=== PATIENT | male | born 1955 | race Caucasian/White ===

== ENCOUNTER 2022-02-28 15:13 | Inpatient (IN) ==
[2022-02-28] MEDS ORDERED: D5% in Water 1,000 ML IVC PRN (18:27)
[2022-02-28] MEDS ORDERED: Dextrose Gel 15 GM/37.5 ML TUBE PO PRN ×2 (18:27)
[2022-02-28] MEDS ORDERED: *HR* Dextrose 50 % in Water (Syg) 50 ML SYRINGE IVP PRN (18:27)
[2022-02-28] MEDS ORDERED: Insulin DETEMIR 100 UNIT/ML per UNIT SUBQ SCH ×2 (21:00)
[2022-02-28] MEDS: Insulin DETEMIR 100 UNIT/ML X5UNITS SUBQ SCH (22:20)
[2022-03-01 05:28] LABS: Basophils # 0.1 K/mcL (0.0-0.2); Basophils % 0.9 %; Eosinophils # 0.3 K/mcL (0.0-0.6); Eosinophils % 2.7 %; Hematocrit 38.1 % (37.5-50.1); Immature Granulocytes % 0.2 % (0-4); Lymphocytes # 2.6 K/mcL (0.6-4.6); Lymphocytes % 27.8 %; Mean Corpuscular HGB Conc 34.1 g/dL (31.6-35.5); Mean Corpuscular Hemoglobin 29.6 pg (28.0-33.3); Mean Corpuscular Volume 86.8 fL (83.0-100.0); Mean Platelet Volume 8.7 fL (9.4-12.4); Monocytes # 1.1 K/mcL (0.0-1.3); Monocytes % 11.4 %; Neutrophils # 5.4 K/mcL (1.6-8.9); Platelet Count 312 K/mcL (140-400); Red Blood Count 4.39 M/mcL (4.19-5.50); White Blood Count 9.5 K/mcL (4.3-11.1)
[2022-03-01 05:49] LABS: BUN/Creatinine Ratio 20 (6-26); Blood Urea Nitrogen 21 mg/dL (8-23); Calcium 9.3 mg/dL (8.6-10.3); Carbon Dioxide 31 mEq/L (23-29); Chloride 100 mEq/L (98-107); Glucose 129 mg/dL (70-105); Osmolality,Calculated 289 (280-300); Potassium 4.2 mEq/L (3.5-5.1); Sodium 137 mEq/L (136-145); eGFR For African Americans > 60 (> 60); eGFR For Non-African Americans > 60 (> 60)
[2022-03-01] MEDS: Insulin LISPRO 300 UNITS/3 ML VIAL SUBQ SCH ×5 (08:18→21:17)
[2022-03-01] MEDS: *HR* Enoxaparin 40 MG/0.4 ML SYRINGE SQ SCH (08:18)
[2022-03-01] MEDS: Venlafaxine XR (24 HR) 75 MG CAP.ER.24H PO SCH (08:23)
[2022-03-01] MEDS: Insulin DETEMIR 100 UNIT/ML X5UNITS SUBQ SCH ×2 (08:23→21:19)
[2022-03-01] MEDS: *HR* Metformin 500 MG TABLET PO SCH ×2 (08:23→17:12)
[2022-03-01] MEDS: lisinopriL 10 MG TABLET PO SCH (08:23)
[2022-03-01] MEDS: Aspirin Enteric Coated 81 MG Tablet PO SCH (08:23)
[2022-03-01] MEDS: Propranolol LA (24 HR) 60 MG CAP.SA.24H PO SCH (08:27)
[2022-03-01 12:57] LABS: Estimated Average Glucose 169 mg/dl; Hemoglobin A1C 7.5 %
[2022-03-02] MEDS: *HR* Enoxaparin 40 MG/0.4 ML SYRINGE SQ SCH (07:03)
[2022-03-02] MEDS: Insulin LISPRO 300 UNITS/3 ML VIAL SUBQ SCH ×4 (07:40→19:48)
[2022-03-02] MEDS: Venlafaxine XR (24 HR) 75 MG CAP.ER.24H PO SCH (08:16)
[2022-03-02] MEDS: *HR* Metformin 500 MG TABLET PO SCH ×2 (08:16→17:22)
[2022-03-02] MEDS: Aspirin Enteric Coated 81 MG Tablet PO SCH (08:16)
[2022-03-02] MEDS: lisinopriL 10 MG TABLET PO SCH (08:16)
[2022-03-02] MEDS: Propranolol LA (24 HR) 60 MG CAP.SA.24H PO SCH (08:17)
[2022-03-02] MEDS: Insulin DETEMIR 100 UNIT/ML X5UNITS SUBQ SCH ×2 (08:18→19:47)
[2022-03-03] MEDS: *HR* Enoxaparin 40 MG/0.4 ML SYRINGE SQ SCH (04:54)
[2022-03-03] MEDS: Insulin LISPRO 300 UNITS/3 ML VIAL SUBQ SCH ×4 (08:02→20:41)
[2022-03-03] MEDS: Insulin DETEMIR 100 UNIT/ML X5UNITS SUBQ SCH ×2 (08:33→20:44)
[2022-03-03] MEDS: lisinopriL 10 MG TABLET PO SCH (08:34)
[2022-03-03] MEDS: Propranolol LA (24 HR) 60 MG CAP.SA.24H PO SCH (08:34)
[2022-03-03] MEDS: Aspirin Enteric Coated 81 MG Tablet PO SCH (08:34)
[2022-03-03] MEDS: Venlafaxine XR (24 HR) 75 MG CAP.ER.24H PO SCH (08:34)
[2022-03-03] MEDS: *HR* Metformin 500 MG TABLET PO SCH ×2 (08:34→17:38)
[2022-03-03] MEDS ORDERED: Bismuth Subsalicylate 120 ML ORAL SUSPENSION PO PRN (12:20)
[2022-03-03] MEDS: Lactobacillus 1 EACH CAP.SPRINK PO SCH (20:44)
[2022-03-04] MEDS: *HR* Enoxaparin 40 MG/0.4 ML SYRINGE SQ SCH (04:26)
[2022-03-04 05:17] LABS: Basophils # 0.1 K/mcL (0.0-0.2); Basophils % 0.9 %; Eosinophils # 0.3 K/mcL (0.0-0.6); Eosinophils % 3.1 %; Hematocrit 37.5 % (37.5-50.1); Hemoglobin 12.7 g/dL (12.9-16.9); Immature Granulocytes % 0.4 % (0-4); Lymphocytes # 2.3 K/mcL (0.6-4.6); Mean Corpuscular HGB Conc 33.9 g/dL (31.6-35.5); Mean Corpuscular Hemoglobin 29.5 pg (28.0-33.3); Monocytes % 11.2 %; Neutrophils # 4.9 K/mcL (1.6-8.9); Platelet Count 292 K/mcL (140-400); Red Blood Count 4.31 M/mcL (4.19-5.50); Red Cell Distribution Width 14.1 % (11.5-14.5); Segmented Neutrophils % 57.4 %; White Blood Count 8.5 K/mcL (4.3-11.1)
[2022-03-04 05:29] LABS: BUN/Creatinine Ratio 20 (6-26); Blood Urea Nitrogen 14 mg/dL (8-23); Calcium 9.2 mg/dL (8.6-10.3); Carbon Dioxide 27 mEq/L (23-29); Chloride 101 mEq/L (98-107); Glucose 137 mg/dL (70-105); Osmolality,Calculated 285 (280-300); Sodium 136 mEq/L (136-145); eGFR For African Americans > 60 (> 60); eGFR For Non-African Americans > 60 (> 60)
[2022-03-04] MEDS: Insulin LISPRO 300 UNITS/3 ML VIAL SUBQ SCH ×4 (09:52→21:46)
[2022-03-04] MEDS: *HR* Metformin 500 MG TABLET PO SCH ×2 (09:58→16:29)
[2022-03-04] MEDS: Propranolol LA (24 HR) 60 MG CAP.SA.24H PO SCH (09:58)
[2022-03-04] MEDS: Venlafaxine XR (24 HR) 75 MG CAP.ER.24H PO SCH (09:58)
[2022-03-04] MEDS: Lactobacillus 1 EACH CAP.SPRINK PO SCH ×2 (09:59→21:45)
[2022-03-04] MEDS: Aspirin Enteric Coated 81 MG Tablet PO SCH (09:59)
[2022-03-04] MEDS: lisinopriL 10 MG TABLET PO SCH (09:59)
[2022-03-04] MEDS: Insulin DETEMIR 100 UNIT/ML X5UNITS SUBQ SCH ×2 (10:02→21:44)
[2022-03-05] MEDS: *HR* Enoxaparin 40 MG/0.4 ML SYRINGE SQ SCH (05:43)
[2022-03-05] MEDS: Venlafaxine XR (24 HR) 75 MG CAP.ER.24H PO SCH (11:04)
[2022-03-05] MEDS: Aspirin Enteric Coated 81 MG Tablet PO SCH (11:04)
[2022-03-05] MEDS: Lactobacillus 1 EACH CAP.SPRINK PO SCH ×2 (11:05→20:50)
[2022-03-05] MEDS: *HR* Metformin 500 MG TABLET PO SCH ×2 (11:05→16:24)
[2022-03-05] MEDS: lisinopriL 10 MG TABLET PO SCH (11:05)
[2022-03-05] MEDS: Propranolol LA (24 HR) 60 MG CAP.SA.24H PO SCH (11:06)
[2022-03-05] MEDS: Insulin LISPRO 300 UNITS/3 ML VIAL SUBQ SCH ×4 (11:11→20:49)
[2022-03-05] MEDS: Insulin DETEMIR 100 UNIT/ML X5UNITS SUBQ SCH ×2 (11:15→20:50)
[2022-03-06] MEDS: *HR* Enoxaparin 40 MG/0.4 ML SYRINGE SQ SCH (05:10)
[2022-03-06] MEDS: Insulin LISPRO 300 UNITS/3 ML VIAL SUBQ SCH ×4 (08:58→20:26)
[2022-03-06] MEDS: Lactobacillus 1 EACH CAP.SPRINK PO SCH ×2 (09:10→20:25)
[2022-03-06] MEDS: *HR* Metformin 500 MG TABLET PO SCH ×2 (09:10→16:39)
[2022-03-06] MEDS: lisinopriL 10 MG TABLET PO SCH (09:10)
[2022-03-06] MEDS: Aspirin Enteric Coated 81 MG Tablet PO SCH (09:10)
[2022-03-06] MEDS: Venlafaxine XR (24 HR) 75 MG CAP.ER.24H PO SCH (09:11)
[2022-03-06] MEDS: Propranolol LA (24 HR) 60 MG CAP.SA.24H PO SCH (09:11)
[2022-03-06] MEDS: Insulin DETEMIR 100 UNIT/ML X5UNITS SUBQ SCH ×2 (09:12→20:25)
[2022-03-07] MEDS: *HR* Enoxaparin 40 MG/0.4 ML SYRINGE SQ SCH (05:06)
[2022-03-07] MEDS: Aspirin Enteric Coated 81 MG Tablet PO SCH (08:22)
[2022-03-07] MEDS: Venlafaxine XR (24 HR) 75 MG CAP.ER.24H PO SCH (08:22)
[2022-03-07] MEDS: lisinopriL 10 MG TABLET PO SCH (08:22)
[2022-03-07] MEDS: *HR* Metformin 500 MG TABLET PO SCH ×2 (08:22→16:15)
[2022-03-07] MEDS: Lactobacillus 1 EACH CAP.SPRINK PO SCH ×2 (08:22→19:54)
[2022-03-07] MEDS: Insulin DETEMIR 100 UNIT/ML X5UNITS SUBQ SCH ×2 (08:22→19:54)
[2022-03-07] MEDS: Propranolol LA (24 HR) 60 MG CAP.SA.24H PO SCH (08:22)
[2022-03-07] MEDS: Insulin LISPRO 300 UNITS/3 ML VIAL SUBQ SCH ×4 (08:23→19:54)
[2022-03-08] MEDS: *HR* Enoxaparin 40 MG/0.4 ML SYRINGE SQ SCH (05:26)
[2022-03-08 05:44] LABS: Hematocrit 37.2 % (37.5-50.1); Hemoglobin 12.6 g/dL (12.9-16.9); Mean Corpuscular HGB Conc 33.9 g/dL (31.6-35.5); Mean Corpuscular Hemoglobin 29.5 pg (28.0-33.3); Mean Corpuscular Volume 87.1 fL (83.0-100.0); Mean Platelet Volume 8.8 fL (9.4-12.4); Platelet Count 302 K/mcL (140-400); Red Blood Count 4.27 M/mcL (4.19-5.50); Red Cell Distribution Width 14.4 % (11.5-14.5); White Blood Count 8.4 K/mcL (4.3-11.1)
[2022-03-08 06:11] LABS: BUN/Creatinine Ratio 15 (6-26); Blood Urea Nitrogen 13 mg/dL (8-23); Calcium 9.3 mg/dL (8.6-10.3); Carbon Dioxide 30 mEq/L (23-29); Chloride 99 mEq/L (98-107); Glucose 138 mg/dL (70-105); Magnesium 1.5 mg/dL (1.6-2.6); Osmolality,Calculated 284 (280-300); Sodium 136 mEq/L (136-145); eGFR For African Americans > 60 (> 60); eGFR For Non-African Americans > 60 (> 60)
[2022-03-08] MEDS: Insulin LISPRO 300 UNITS/3 ML VIAL SUBQ SCH ×4 (07:24→20:44)
[2022-03-08] MEDS: Aspirin Enteric Coated 81 MG Tablet PO SCH (08:42)
[2022-03-08] MEDS: *HR* Metformin 500 MG TABLET PO SCH ×2 (08:42→16:23)
[2022-03-08] MEDS: Venlafaxine XR (24 HR) 75 MG CAP.ER.24H PO SCH (08:42)
[2022-03-08] MEDS: Lactobacillus 1 EACH CAP.SPRINK PO SCH ×2 (08:43→20:44)
[2022-03-08] MEDS: Propranolol LA (24 HR) 60 MG CAP.SA.24H PO SCH (08:43)
[2022-03-08] MEDS: lisinopriL 10 MG TABLET PO SCH (08:43)
[2022-03-08] MEDS: Insulin DETEMIR 100 UNIT/ML X5UNITS SUBQ SCH ×2 (08:45→20:44)
[2022-03-08] MEDS: Magnesium Oxide 400 MG TABLET PO SCH ×2 (10:31→20:44)
[2022-03-09] MEDS: *HR* Enoxaparin 40 MG/0.4 ML SYRINGE SQ SCH (05:14)
[2022-03-09] MEDS: Insulin LISPRO 300 UNITS/3 ML VIAL SUBQ SCH ×4 (08:27→20:01)
[2022-03-09] MEDS: Insulin DETEMIR 100 UNIT/ML X5UNITS SUBQ SCH ×2 (08:31→20:00)
[2022-03-09] MEDS: Lactobacillus 1 EACH CAP.SPRINK PO SCH ×2 (08:31→19:59)
[2022-03-09] MEDS: Propranolol LA (24 HR) 60 MG CAP.SA.24H PO SCH (08:31)
[2022-03-09] MEDS: Aspirin Enteric Coated 81 MG Tablet PO SCH (08:31)
[2022-03-09] MEDS: *HR* Metformin 500 MG TABLET PO SCH ×2 (08:31→17:14)
[2022-03-09] MEDS: Magnesium Oxide 400 MG TABLET PO SCH ×2 (08:31→19:59)
[2022-03-09] MEDS: lisinopriL 10 MG TABLET PO SCH (08:31)
[2022-03-09] MEDS: Venlafaxine XR (24 HR) 75 MG CAP.ER.24H PO SCH (08:31)
[2022-03-09 19:14] VITALS: O2SAT 94
[2022-03-10] MEDS: *HR* Enoxaparin 40 MG/0.4 ML SYRINGE SQ SCH (06:23)
[2022-03-10 07:08] VITALS: BP 120/75; PULSE 81; RESP 16; TEMP 98
[2022-03-10] MEDS: Propranolol LA (24 HR) 60 MG CAP.SA.24H PO SCH (08:27)
[2022-03-10] MEDS: lisinopriL 10 MG TABLET PO SCH (08:27)
[2022-03-10] MEDS: *HR* Metformin 500 MG TABLET PO SCH (08:27)
[2022-03-10] MEDS: Magnesium Oxide 400 MG TABLET PO SCH (08:27)
[2022-03-10] MEDS: Lactobacillus 1 EACH CAP.SPRINK PO SCH (08:27)
[2022-03-10] MEDS: Aspirin Enteric Coated 81 MG Tablet PO SCH (08:27)
[2022-03-10] MEDS: Venlafaxine XR (24 HR) 75 MG CAP.ER.24H PO SCH (08:27)
[2022-03-10] MEDS: Insulin DETEMIR 100 UNIT/ML X5UNITS SUBQ SCH (08:28)
[2022-03-10] MEDS: Insulin LISPRO 300 UNITS/3 ML VIAL SUBQ SCH (08:29)
== END 2022-03-10 12:05 | disposition home health service (06) | DRG 65 ==
LOC: INPGRE 16:38
PROVIDERS: ADMIT Family Medicine; ATTEND Family Medicine

== ENCOUNTER 2022-05-04 10:28 | Inpatient (IN) ==
[2022-05-04] MEDS ORDERED: *HR* Dextrose 50 % in Water (Syg) 50 ML SYRINGE IVP PRN (17:00)
[2022-05-04] MEDS ORDERED: Dextrose Gel 15 GM/37.5 ML TUBE PO PRN ×2 (17:00)
[2022-05-04] MEDS ORDERED: D5% in Water 1,000 ML IVC PRN (17:00)
[2022-05-04] MEDS: *HR* Metformin 500 MG TABLET PO SCH (18:45)
[2022-05-04] MEDS: Lactobacillus 1 EACH CAP.SPRINK PO SCH (20:11)
[2022-05-04] MEDS: *HR* OxyCODONE Immed Rel 5 MG TABLET PO PRN (20:12)
[2022-05-05 03:57] LABS: Basophils # 0.1 K/mcL (0.0-0.2); Basophils % 1.2 %; Eosinophils # 0.5 K/mcL (0.0-0.6); Eosinophils % 4.8 %; Hematocrit 36.8 % (37.5-50.1); Hemoglobin 12.5 g/dL (12.9-16.9); Immature Granulocytes % 0.4 % (0-4); Lymphocytes # 2.3 K/mcL (0.6-4.6); Lymphocytes % 21.3 %; Mean Corpuscular Hemoglobin 29.6 pg (28.0-33.3); Mean Platelet Volume 8.8 fL (9.4-12.4); Monocytes % 9.4 %; Neutrophils # 6.8 K/mcL (1.6-8.9); Platelet Count 304 K/mcL (140-400); Red Blood Count 4.23 M/mcL (4.19-5.50); Red Cell Distribution Width 13.6 % (11.5-14.5); Segmented Neutrophils % 62.9 %; White Blood Count 10.7 K/mcL (4.3-11.1)
[2022-05-05] MEDS: Insulin LISPRO 300 UNITS/3 ML VIAL SUBQ SCH ×5 (04:00→19:48)
[2022-05-05 04:08] LABS: Alanine Aminotransferase 22 Units/L (7-52); Albumin 3.6 g/dL (3.5-5.7); Albumin/Globulin Ratio 1.2 (1.1-2.2); Alkaline Phosphatase 40 Units/L (34-104); Aspartate Amino Transferase 18 Units/L (13-39); BUN/Creatinine Ratio 22 (6-26); Bilirubin,Total 1.1 mg/dL (0.3-1.0); Blood Urea Nitrogen 20 mg/dL (8-23); Calcium 8.7 mg/dL (8.6-10.3); Carbon Dioxide 27 mEq/L (23-29); Chloride 98 mEq/L (98-107); Globulin 2.9 g/dL (2.4-3.5); Glucose 189 mg/dL (70-105); Magnesium 1.8 mg/dL (1.6-2.6); Osmolality,Calculated 282 (280-300); Potassium 4.1 mEq/L (3.5-5.1); Sodium 132 mEq/L (136-145); Total Protein 6.5 g/dL (6.4-8.9)
[2022-05-05] MEDS: *HR* Enoxaparin 40 MG/0.4 ML SYRINGE SQ SCH (06:10)
[2022-05-05] MEDS: *HR* OxyCODONE Immed Rel 5 MG TABLET PO PRN ×2 (06:11→19:58)
[2022-05-05] MEDS: Magnesium Oxide 400 MG TABLET PO SCH (08:56)
[2022-05-05] MEDS: Lactobacillus 1 EACH CAP.SPRINK PO SCH ×2 (08:56→19:57)
[2022-05-05] MEDS: lisinopriL 10 MG TABLET PO SCH (08:56)
[2022-05-05] MEDS: *HR* Metformin 500 MG TABLET PO SCH ×2 (08:56→16:56)
[2022-05-05] MEDS: Dulaglutide [Trulicity] 1.5 MG/0.5 ML Pen.Injctr SUBQ SCH ×2 (08:57→13:00)
[2022-05-05] MEDS: Propranolol LA (24 HR) 60 MG CAP.SA.24H PO SCH (08:57)
[2022-05-05] MEDS: Aspirin Enteric Coated 81 MG Tablet PO SCH (08:57)
[2022-05-06] MEDS: *HR* OxyCODONE Immed Rel 5 MG TABLET PO PRN ×5 (00:55→21:01)
[2022-05-06 04:18] LABS: Hematocrit 36.3 % (37.5-50.1); Hemoglobin 12.3 g/dL (12.9-16.9); Mean Corpuscular HGB Conc 33.9 g/dL (31.6-35.5); Mean Corpuscular Hemoglobin 29.4 pg (28.0-33.3); Mean Corpuscular Volume 86.6 fL (83.0-100.0); Platelet Count 321 K/mcL (140-400); Red Blood Count 4.19 M/mcL (4.19-5.50); Red Cell Distribution Width 13.6 % (11.5-14.5); White Blood Count 11.6 K/mcL (4.3-11.1)
[2022-05-06 04:34] LABS: BUN/Creatinine Ratio 25 (6-26); Blood Urea Nitrogen 22 mg/dL (8-23); Calcium 8.8 mg/dL (8.6-10.3); Carbon Dioxide 27 mEq/L (23-29); Chloride 100 mEq/L (98-107); Glucose 152 mg/dL (70-105); Magnesium 1.7 mg/dL (1.6-2.6); Osmolality,Calculated 288 (280-300); Potassium 4.1 mEq/L (3.5-5.1); Sodium 136 mEq/L (136-145)
[2022-05-06] MEDS: *HR* Enoxaparin 40 MG/0.4 ML SYRINGE SQ SCH (05:26)
[2022-05-06] MEDS: Propranolol LA (24 HR) 60 MG CAP.SA.24H PO SCH (08:08)
[2022-05-06] MEDS: lisinopriL 10 MG TABLET PO SCH (08:08)
[2022-05-06] MEDS: Magnesium Oxide 400 MG TABLET PO SCH (08:08)
[2022-05-06] MEDS: Lactobacillus 1 EACH CAP.SPRINK PO SCH ×2 (08:08→21:00)
[2022-05-06] MEDS: Aspirin Enteric Coated 81 MG Tablet PO SCH (08:08)
[2022-05-06] MEDS: *HR* Metformin 500 MG TABLET PO SCH ×2 (08:08→16:29)
[2022-05-06] MEDS: Insulin LISPRO 300 UNITS/3 ML VIAL SUBQ SCH ×4 (08:09→21:01)
[2022-05-06] MEDS ORDERED: tiZANidine 4 MG TABLET PO PRN (13:07)
[2022-05-07] MEDS: *HR* Enoxaparin 40 MG/0.4 ML SYRINGE SQ SCH (05:09)
[2022-05-07] MEDS: *HR* OxyCODONE Immed Rel 5 MG TABLET PO PRN (08:44)
[2022-05-07] MEDS: Lactobacillus 1 EACH CAP.SPRINK PO SCH ×2 (08:44→22:09)
[2022-05-07] MEDS: Insulin LISPRO 300 UNITS/3 ML VIAL SUBQ SCH ×4 (08:44→22:10)
[2022-05-07] MEDS: Propranolol LA (24 HR) 60 MG CAP.SA.24H PO SCH (08:45)
[2022-05-07] MEDS: lisinopriL 10 MG TABLET PO SCH (08:45)
[2022-05-07] MEDS: Magnesium Oxide 400 MG TABLET PO SCH (08:45)
[2022-05-07] MEDS: *HR* Metformin 500 MG TABLET PO SCH ×2 (08:45→16:58)
[2022-05-07] MEDS: Aspirin Enteric Coated 81 MG Tablet PO SCH (08:45)
[2022-05-08] MEDS: *HR* Enoxaparin 40 MG/0.4 ML SYRINGE SQ SCH (05:35)
[2022-05-08] MEDS: *HR* OxyCODONE Immed Rel 5 MG TABLET PO PRN (08:09)
[2022-05-08] MEDS: Propranolol LA (24 HR) 60 MG CAP.SA.24H PO SCH (08:09)
[2022-05-08] MEDS: lisinopriL 10 MG TABLET PO SCH (08:10)
[2022-05-08] MEDS: Aspirin Enteric Coated 81 MG Tablet PO SCH (08:11)
[2022-05-08] MEDS: Lactobacillus 1 EACH CAP.SPRINK PO SCH ×2 (08:11→19:45)
[2022-05-08] MEDS: Magnesium Oxide 400 MG TABLET PO SCH (08:11)
[2022-05-08] MEDS: Insulin LISPRO 300 UNITS/3 ML VIAL SUBQ SCH ×4 (08:11→19:30)
[2022-05-08] MEDS: *HR* Metformin 500 MG TABLET PO SCH (08:12)
[2022-05-08] MEDS: METFORMIN HCL 500 MG PO SCH (16:55)
[2022-05-09] MEDS: *HR* Enoxaparin 40 MG/0.4 ML SYRINGE SQ SCH (04:30)
[2022-05-09 05:47] LABS: Basophils # 0.1 K/mcL (0.0-0.2); Basophils % 1.1 %; Eosinophils # 0.3 K/mcL (0.0-0.6); Eosinophils % 3.5 %; Hematocrit 35.3 % (37.5-50.1); Hemoglobin 12.1 g/dL (12.9-16.9); Immature Granulocytes % 0.4 % (0-4); Lymphocytes % 22.1 %; Mean Corpuscular HGB Conc 34.3 g/dL (31.6-35.5); Mean Corpuscular Hemoglobin 29.7 pg (28.0-33.3); Mean Corpuscular Volume 86.5 fL (83.0-100.0); Mean Platelet Volume 8.6 fL (9.4-12.4); Monocytes # 0.9 K/mcL (0.0-1.3); Monocytes % 9.8 %; Neutrophils # 5.8 K/mcL (1.6-8.9); Platelet Count 284 K/mcL (140-400); Red Blood Count 4.08 M/mcL (4.19-5.50); Red Cell Distribution Width 13.5 % (11.5-14.5); Segmented Neutrophils % 63.1 %; White Blood Count 9.2 K/mcL (4.3-11.1)
[2022-05-09 06:07] LABS: BUN/Creatinine Ratio 24 (6-26); Blood Urea Nitrogen 21 mg/dL (8-23); Calcium 8.8 mg/dL (8.6-10.3); Carbon Dioxide 28 mEq/L (23-29); Chloride 98 mEq/L (98-107); Glucose 156 mg/dL (70-105); Osmolality,Calculated 282 (280-300); Sodium 133 mEq/L (136-145)
[2022-05-09] MEDS: lisinopriL 10 MG TABLET PO SCH (07:45)
[2022-05-09] MEDS: Aspirin Enteric Coated 81 MG Tablet PO SCH (07:45)
[2022-05-09] MEDS: Lactobacillus 1 EACH CAP.SPRINK PO SCH ×2 (07:45→19:47)
[2022-05-09] MEDS: Magnesium Oxide 400 MG TABLET PO SCH (07:45)
[2022-05-09] MEDS: Insulin LISPRO 300 UNITS/3 ML VIAL SUBQ SCH ×4 (07:46→19:47)
[2022-05-09] MEDS: Propranolol LA (24 HR) 60 MG CAP.SA.24H PO SCH (07:46)
[2022-05-09] MEDS: METFORMIN HCL 500 MG PO SCH ×2 (07:46→16:45)
[2022-05-09] MEDS: *HR* OxyCODONE Immed Rel 5 MG TABLET PO PRN (08:09)
[2022-05-10] MEDS: *HR* Enoxaparin 40 MG/0.4 ML SYRINGE SQ SCH (04:43)
[2022-05-10] MEDS: Aspirin Enteric Coated 81 MG Tablet PO SCH (08:11)
[2022-05-10] MEDS: Lactobacillus 1 EACH CAP.SPRINK PO SCH ×2 (08:11→21:08)
[2022-05-10] MEDS: Insulin LISPRO 300 UNITS/3 ML VIAL SUBQ SCH ×4 (08:11→21:08)
[2022-05-10] MEDS: Magnesium Oxide 400 MG TABLET PO SCH (08:11)
[2022-05-10] MEDS: METFORMIN HCL 500 MG PO SCH ×2 (08:12→16:36)
[2022-05-10] MEDS: *HR* OxyCODONE Immed Rel 5 MG TABLET PO PRN ×2 (08:12→16:36)
[2022-05-10] MEDS: Propranolol LA (24 HR) 60 MG CAP.SA.24H PO SCH (08:12)
[2022-05-10] MEDS: lisinopriL 10 MG TABLET PO SCH (08:12)
[2022-05-11] MEDS: *HR* OxyCODONE Immed Rel 5 MG TABLET PO PRN ×3 (05:36→21:09)
[2022-05-11] MEDS: *HR* Enoxaparin 40 MG/0.4 ML SYRINGE SQ SCH (05:36)
[2022-05-11] MEDS: Insulin LISPRO 300 UNITS/3 ML VIAL SUBQ SCH ×4 (08:12→21:09)
[2022-05-11] MEDS: METFORMIN HCL 500 MG PO SCH ×2 (08:25→17:05)
[2022-05-11] MEDS: Propranolol LA (24 HR) 60 MG CAP.SA.24H PO SCH (08:25)
[2022-05-11] MEDS: Lactobacillus 1 EACH CAP.SPRINK PO SCH ×2 (08:25→21:09)
[2022-05-11] MEDS: Magnesium Oxide 400 MG TABLET PO SCH (08:25)
[2022-05-11] MEDS: Aspirin Enteric Coated 81 MG Tablet PO SCH (08:25)
[2022-05-11] MEDS: lisinopriL 10 MG TABLET PO SCH (08:25)
[2022-05-12] MEDS: *HR* Enoxaparin 40 MG/0.4 ML SYRINGE SQ SCH (05:13)
[2022-05-12] MEDS: Insulin LISPRO 300 UNITS/3 ML VIAL SUBQ SCH ×4 (08:54→20:12)
[2022-05-12] MEDS: Magnesium Oxide 400 MG TABLET PO SCH (08:55)
[2022-05-12] MEDS: Aspirin Enteric Coated 81 MG Tablet PO SCH (08:55)
[2022-05-12] MEDS: Lactobacillus 1 EACH CAP.SPRINK PO SCH ×2 (08:55→20:12)
[2022-05-12] MEDS: METFORMIN HCL 500 MG PO SCH ×2 (08:55→17:43)
[2022-05-12] MEDS: Propranolol LA (24 HR) 60 MG CAP.SA.24H PO SCH (08:56)
[2022-05-12] MEDS: lisinopriL 10 MG TABLET PO SCH (08:56)
[2022-05-12] MEDS: Dulaglutide [Trulicity] 1.5 MG/0.5 ML Pen.Injctr SUBQ SCH (08:58)
[2022-05-13] MEDS: *HR* Enoxaparin 40 MG/0.4 ML SYRINGE SQ SCH (06:12)
[2022-05-13] MEDS: METFORMIN HCL 500 MG PO SCH ×2 (08:03→17:41)
[2022-05-13] MEDS: Magnesium Oxide 400 MG TABLET PO SCH (08:03)
[2022-05-13] MEDS: Propranolol LA (24 HR) 60 MG CAP.SA.24H PO SCH (08:04)
[2022-05-13] MEDS: Insulin LISPRO 300 UNITS/3 ML VIAL SUBQ SCH ×4 (08:04→19:48)
[2022-05-13] MEDS: lisinopriL 10 MG TABLET PO SCH (08:04)
[2022-05-13] MEDS: Aspirin Enteric Coated 81 MG Tablet PO SCH (08:04)
[2022-05-13] MEDS: Lactobacillus 1 EACH CAP.SPRINK PO SCH ×2 (08:04→19:47)
[2022-05-14 04:11] LABS: Basophils # 0.1 K/mcL (0.0-0.2); Basophils % 0.9 %; Eosinophils # 0.2 K/mcL (0.0-0.6); Eosinophils % 2.2 %; Hematocrit 33.3 % (37.5-50.1); Hemoglobin 11.5 g/dL (12.9-16.9); Immature Granulocytes % 0.4 % (0-4); Lymphocytes # 2.1 K/mcL (0.6-4.6); Lymphocytes % 20.2 %; Mean Corpuscular HGB Conc 34.5 g/dL (31.6-35.5); Mean Corpuscular Hemoglobin 30.2 pg (28.0-33.3); Mean Corpuscular Volume 87.4 fL (83.0-100.0); Monocytes % 9.4 %; Neutrophils # 6.9 K/mcL (1.6-8.9); Platelet Count 313 K/mcL (140-400); Red Blood Count 3.81 M/mcL (4.19-5.50); Red Cell Distribution Width 13.5 % (11.5-14.5); Segmented Neutrophils % 66.9 %; White Blood Count 10.3 K/mcL (4.3-11.1)
[2022-05-14 04:28] LABS: BUN/Creatinine Ratio 33 (6-26); Blood Urea Nitrogen 29 mg/dL (8-23); Calcium 8.8 mg/dL (8.6-10.3); Carbon Dioxide 23 mEq/L (23-29); Chloride 96 mEq/L (98-107); Glucose 145 mg/dL (70-105); Osmolality,Calculated 276 (280-300); Potassium 4.1 mEq/L (3.5-5.1); Sodium 129 mEq/L (136-145)
[2022-05-14] MEDS: *HR* Enoxaparin 40 MG/0.4 ML SYRINGE SQ SCH (05:26)
[2022-05-14] MEDS: Lactobacillus 1 EACH CAP.SPRINK PO SCH ×2 (08:32→19:50)
[2022-05-14] MEDS: lisinopriL 10 MG TABLET PO SCH (08:32)
[2022-05-14] MEDS: Aspirin Enteric Coated 81 MG Tablet PO SCH (08:32)
[2022-05-14] MEDS: Magnesium Oxide 400 MG TABLET PO SCH (08:32)
[2022-05-14] MEDS: Propranolol LA (24 HR) 60 MG CAP.SA.24H PO SCH (08:32)
[2022-05-14] MEDS: METFORMIN HCL 500 MG PO SCH ×2 (08:33→16:50)
[2022-05-14] MEDS: Insulin LISPRO 300 UNITS/3 ML VIAL SUBQ SCH ×4 (08:33→19:59)
[2022-05-15] MEDS: *HR* Enoxaparin 40 MG/0.4 ML SYRINGE SQ SCH (05:33)
[2022-05-15] MEDS: Propranolol LA (24 HR) 60 MG CAP.SA.24H PO SCH (08:12)
[2022-05-15] MEDS: Lactobacillus 1 EACH CAP.SPRINK PO SCH ×2 (08:12→19:42)
[2022-05-15] MEDS: lisinopriL 10 MG TABLET PO SCH (08:13)
[2022-05-15] MEDS: METFORMIN HCL 500 MG PO SCH ×2 (08:13→16:57)
[2022-05-15] MEDS: Aspirin Enteric Coated 81 MG Tablet PO SCH (08:13)
[2022-05-15] MEDS: Insulin LISPRO 300 UNITS/3 ML VIAL SUBQ SCH ×4 (08:13→19:43)
[2022-05-15] MEDS: Magnesium Oxide 400 MG TABLET PO SCH (08:13)
[2022-05-15] MEDS: Psyllium 1 PACKET POWD.PACK PO SCH (12:03)
[2022-05-16 04:59] LABS: Basophils # 0.1 K/mcL (0.0-0.2); Eosinophils # 0.3 K/mcL (0.0-0.6); Eosinophils % 3.5 %; Hematocrit 33.8 % (37.5-50.1); Hemoglobin 11.7 g/dL (12.9-16.9); Immature Granulocytes % 0.3 % (0-4); Lymphocytes # 1.9 K/mcL (0.6-4.6); Mean Corpuscular HGB Conc 34.6 g/dL (31.6-35.5); Mean Corpuscular Hemoglobin 30.2 pg (28.0-33.3); Mean Corpuscular Volume 87.1 fL (83.0-100.0); Mean Platelet Volume 8.7 fL (9.4-12.4); Monocytes # 0.8 K/mcL (0.0-1.3); Monocytes % 9.7 %; Neutrophils # 4.9 K/mcL (1.6-8.9); Platelet Count 296 K/mcL (140-400); Red Blood Count 3.88 M/mcL (4.19-5.50); Red Cell Distribution Width 13.5 % (11.5-14.5); Segmented Neutrophils % 61.5 %
[2022-05-16 05:15] LABS: BUN/Creatinine Ratio 20 (6-26); Blood Urea Nitrogen 16 mg/dL (8-23); Carbon Dioxide 28 mEq/L (23-29); Chloride 101 mEq/L (98-107); Glucose 144 mg/dL (70-105); Osmolality,Calculated 284 (280-300); Potassium 4.4 mEq/L (3.5-5.1); Sodium 135 mEq/L (136-145)
[2022-05-16] MEDS: *HR* Enoxaparin 40 MG/0.4 ML SYRINGE SQ SCH (05:17)
[2022-05-16] MEDS: lisinopriL 10 MG TABLET PO SCH (08:21)
[2022-05-16] MEDS: Propranolol LA (24 HR) 60 MG CAP.SA.24H PO SCH (08:22)
[2022-05-16] MEDS: Aspirin Enteric Coated 81 MG Tablet PO SCH (08:23)
[2022-05-16] MEDS: Magnesium Oxide 400 MG TABLET PO SCH (08:23)
[2022-05-16] MEDS: Psyllium 1 PACKET POWD.PACK PO SCH (08:23)
[2022-05-16] MEDS: Lactobacillus 1 EACH CAP.SPRINK PO SCH ×2 (08:23→22:17)
[2022-05-16] MEDS: METFORMIN HCL 500 MG PO SCH ×2 (08:23→16:48)
[2022-05-16] MEDS: Insulin LISPRO 300 UNITS/3 ML VIAL SUBQ SCH ×4 (08:24→22:18)
[2022-05-17] MEDS: *HR* Enoxaparin 40 MG/0.4 ML SYRINGE SQ SCH (06:22)
[2022-05-17] MEDS: lisinopriL 10 MG TABLET PO SCH (08:51)
[2022-05-17] MEDS: Lactobacillus 1 EACH CAP.SPRINK PO SCH ×2 (08:51→22:23)
[2022-05-17] MEDS: Magnesium Oxide 400 MG TABLET PO SCH (08:51)
[2022-05-17] MEDS: Psyllium 1 PACKET POWD.PACK PO SCH (08:52)
[2022-05-17] MEDS: METFORMIN HCL 500 MG PO SCH ×2 (08:52→16:35)
[2022-05-17] MEDS: Aspirin Enteric Coated 81 MG Tablet PO SCH (08:52)
[2022-05-17] MEDS: Propranolol LA (24 HR) 60 MG CAP.SA.24H PO SCH (08:52)
[2022-05-17] MEDS: Insulin LISPRO 300 UNITS/3 ML VIAL SUBQ SCH ×4 (08:54→20:51)
[2022-05-17 20:27] VITALS: TEMP 98
[2022-05-17] MEDS: *HR* OxyCODONE Immed Rel 5 MG TABLET PO PRN (22:23)
[2022-05-18] MEDS: *HR* Enoxaparin 40 MG/0.4 ML SYRINGE SQ SCH (06:05)
[2022-05-18] MEDS: *HR* OxyCODONE Immed Rel 5 MG TABLET PO PRN (06:06)
[2022-05-18] MEDS: Aspirin Enteric Coated 81 MG Tablet PO SCH (08:13)
[2022-05-18] MEDS: Magnesium Oxide 400 MG TABLET PO SCH (08:13)
[2022-05-18] MEDS: lisinopriL 10 MG TABLET PO SCH (08:13)
[2022-05-18] MEDS: Propranolol LA (24 HR) 60 MG CAP.SA.24H PO SCH (08:13)
[2022-05-18] MEDS: Lactobacillus 1 EACH CAP.SPRINK PO SCH (08:13)
[2022-05-18] MEDS: Insulin LISPRO 300 UNITS/3 ML VIAL SUBQ SCH ×3 (08:15→17:23)
[2022-05-18] MEDS: METFORMIN HCL 500 MG PO SCH ×2 (08:21→17:24)
[2022-05-18] MEDS: Psyllium 1 PACKET POWD.PACK PO SCH (08:21)
[2022-05-18 08:42] VITALS: BP 109/71; PULSE 73; RESP 16; O2SAT 93
== END 2022-05-18 19:30 | disposition home or self-care (01) | DRG 560 ==
LOC: INPGRE 16:39
PROVIDERS: ADMIT Family Medicine; ATTEND Family Medicine